=== PATIENT | male | born 1950 | race Hispanic/Latino ===

== ENCOUNTER 2016-08-09 10:48 | Emergency (ER) | payer BC, MEDICARE ==
[2016-08-09 11:02] VITALS: BMI 30.2
[2016-08-09 11:05] VITALS: BP 136/74; PULSE 90; RESP 17; TEMP 98.9; O2SAT 96
--- NOTE | 2016-08-09 11:24 | ED PDOC ---
Arrival/HPI - General Chief Complaint: Lower Extremity Problem/Injury Time Seen by Provider: 08/09/16 11:11 Historian: Patient, Spouse - History of Present Illness Narrative History of Present Illness (Text): 08/09/16 11:15 A 65 year old male, whose past medical history includes peripheral neuropathy and chronic lower leg swelling, presents to the emergency room with complaints of bottom of the left heel pain for 2 days. Patient notes the pain is worst with ambulation and better with rest. Patient denies any trauma, any other pain , or any other complaints. PMD: Dr. Landeros Time/Duration: < week (2 days) Symptom Onset: Sudden Symptom Course: Unchanged Quality: Other ("Pain") Severity Level: Moderate Activities at Onset: Light Context: Home Past Medical History - Provider Review Nursing Documentation Reviewed: Yes - Infectious Disease Hx of Infectious Diseases: None - Tetanus Immunization Tetanus Immunization: Unknown - Cardiac Hx Cardiac Disorders: Yes Hx WA: Yes (x 3) Hx Hypertension: Yes - Pulmonary Hx Respiratory Disorders: No - Neurological Hx Neurological Disorder: No - HEENT Hx HEENT Disorder: No - Renal Hx Renal Disorder: No - Endocrine/Metabolic Hx Endocrine Disorders: Yes Hx Diabetes Mellitus Type 2: Yes (IDDM) Hx Hypothyroidism: Yes - Hematological/Oncological Hx Blood Disorders: No - Integumentary Hx Dermatological Disorder: Yes Other/Comment: "Superbug" for past 5 years. pt breaks out on upper torso with sm pustules that are painful. contoled with antiobiotic therapy. - Musculoskeletal/Rheumatological Hx Musculoskeletal Disorders: No Hx Falls: No - Gastrointestinal Hx Gastrointestinal Disorders: No - Genitourinary/Gynecological Hx Genitourinary Disorders: No - Psychiatric Hx Psychophysiologic Disorder: No Hx Substance Use: Yes - Past Surgical History Past Surgical History: Non-Contributing - Surgical History Hx Coronary Artery Bypass Graft: Yes Hx Coronary Stent: Yes (x 10) Hx Open Heart Surgery: Yes (aortic valve replacement) Other/Comment: pi cyst; open heart 2015 - Anesthesia Hx Anesthesia: Yes Hx Anesthesia Reactions: No Hx Malignant Hyperthermia: No - Suicidal Assessment Feels Threatened In Home Enviroment: No Family/Social History - Physician Review Nursing Documentation Reviewed: Yes Family/Social History: No Known Family HX Smoking Status: Former Smoker Hx Alcohol Use: Yes (OCCASSIONAL) Hx Substance Use: Yes Allergies/Home Meds Allergies/Adverse Reactions: Allergies No Known Allergies Allergy (Verified 08/09/16 11:02) Home Medications: Home Meds Medication Instructions Recorded Confirmed Aspirin/Acetaminophen/Caffeine 1 tab PO PRN PRN 05/24/15 08/09/16 [Excedrin Extra Strength Caplet] Atorvastatin [Lipitor] 40 mg PO DAILY 05/24/15 08/09/16 Furosemide [Lasix] 40 mg PO BID 05/24/15 08/09/16 Insulin Detemir [Levemir] 20 units SC QPM 05/24/15 08/09/16 Insulin Detemir [Levemir] 55 units SC AMHS 05/24/15 08/09/16 Levothyroxine [Synthroid] 50 mcg PO DAILY 05/24/15 08/09/16 Melatonin [Melatonin] 10 mg PO HS 05/24/15 08/09/16 Metformin ER [Glucophage XR] 2,000 mg PO DAILY 05/24/15 08/09/16 Potassium Chloride [K-Dur 20 mEq 1 tab PO BID 05/24/15 08/09/16 ER Tab] Pregabalin [Lyrica] 100 mg PO BID 05/24/15 08/09/16 Sulfamethoxazole/Trimethoprim 1 tab PO BID 05/24/15 08/09/16 [Bactrim DS Tab] Topiramate [Topamax] 2 cap PO BID 05/24/15 08/09/16 Dulaglutide [Trulicity] 1.5 mg SC TUE 08/09/16 08/09/16 Folic Acid 1 mg PO DAILY 08/09/16 08/09/16 Insulin Lispro [humALOG] 30 unit SC TID 08/09/16 08/09/16 Lisinopril [Zestril] 2.5 mg PO DAILY 08/09/16 08/09/16 Methotrexate 25 mg PO TUE 08/09/16 08/09/16 Metoprolol Tartrate [Lopressor] 50 mg PO TID 08/09/16 08/09/16 Ubidecarenone [Co Q-10] 200 mg PO DAILY 08/09/16 08/09/16 Physical Exam - Physical Exam Narrative Physical Exam (Text): 08/09/16 11:24 - Review of Systems Constitutional: Normal. absent: Fatigue, Weight Change, Fevers Eyes: Normal ENT: Normal Respiratory: Normal absent: SOB, Cough, Sputum Cardiovascular: Normal absent: Chest pain, Palpitations, Syncope Gastrointestinal: Normal absent: Abdominal pain, Diarrhea, Nausea, Vomiting Genitourinary: Normal. absent: Dysuria, Frequency, Hematuria Musculoskeletal: Bottom of the left heel pain. absent: Arthralgias, Back Pain, Neck Pain Skin: Normal Neurological: Normal absent: Focal Weakness Endocrine: Normal Hemo/Lymphatic: Normal Psychiatric: Normal - Physical exam Patient appears age appropriate, speaking full sentences without difficulty - Systems Exam Head: Present: Atraumatic, Normocephalic Lower Extremity: Present: Pain along left heel with palpation. Positive pulses. Distal neurovascular fully intact. No: Swelling, Warmth, Edematous. Neurological: Present: GCS=15, Speech Normal, cranial nerves II through XII fully intact with no cerebellar abnormality, neuro-sensory fully intact. No focal neurological deficits. Skin: Present: Warm, Dry, Normal Color. No: Rashes Psychiatric: Present: Alert, Oriented x 3, Normal Insight, Normal Concentration Vital Signs Reviewed: Yes Vital Signs Temp Pulse Resp BP Pulse Ox 08/09/16 11:03 98.9 F 90 17 136/74 96 Temperature: Afebrile Blood Pressure: Normal Pulse: Regular Respiratory Rate: Normal Appearance: Positive for: Well-Appearing, Non-Toxic, Comfortable Pain Distress: None Mental Status: Positive for: Alert and Oriented X 3 Medical Decision Making ED Course and Treatment: 08/09/16 11:28 Impression: A 65 year old male with bottom of the left heel pain. Pain along heel with palpation noted on examination. Differential Diagnosis included but are not limited to: Plantar Fasciitis Plan: -- Left Foot X-ray -- Left Heel X-ray -- Toradol -- Reassess and disposition Prior Visits: Notes and results from previous visits were reviewed. Patient was last evaluated in the emergency room on 05/24/15 for the evaluation of foot pain. Progress Notes: Exam consistent with Plantar Fasciitis. Per patient's request, heel x-ray ordered. 08/09/16 12:20 no acute fractures or dislocations on xray. findings suspicious for calcific tendonitis. 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 Patient states that he fully agrees with and understands discharge instructions. States that he agrees with the plan and disposition. Verbalized and repeated discharge instructions and plan. I have given the patient opportunity to ask any additional questions. - RAD Interpretation Radiology Orders: 08/09/16 11:19 FOOT LEFT 3 VIEWS ROUTINE [RAD] Stat HEEL LEFT [RAD] Stat - Medication Orders Current Medication Orders: Discontinued Medications Ketorolac Tromethamine (Toradol) 15 mg IM STAT STA Stop: 08/09/16 11:19 Last Admin: 08/09/16 12:15 Dose: 15 mg - Scribe Statement The provider has reviewed the documentation as recorded by the Ayadibcayetano Estrada Provider Scribe Attestation: All medical record entries made by the Scribe were at my direction and personally dictated by me. I have reviewed the chart and agree that the record accurately reflects my personal performance of the history, physical exam, medical decision making, and the department course for this patient. I have also personally directed, reviewed, and agree with the discharge instructions and disposition. Disposition/Present on Arrival - Present on Arrival Any Indicators Present on Arrival: No History of DVT/PE: No History of Uncontrolled Diabetes: No Urinary Catheter: No History of Decub. Ulcer: No History Surgical Site Infection Following: None - Disposition Have Diagnosis and Disposition been Completed?: Yes Diagnosis: Heel pain Disposition: HOME/ ROUTINE Disposition Time: 12:25 Patient Plan: Discharge Patient Problems: Current Active Problems Problem Status Onset Heel pain Acute Condition: GOOD Discharge Instructions (ExitCare): Plantar Fasciitis (ED), Calcific Tendinitis (ED), Heel Spur (ED) Additional Instructions: PLEASE RETURN TO THE EMERGENCY DEPARTMENT FOR NEW OR WORSENING SYMPTOMS. RETURN RIGHT AWAY IF YOU CANNOT FOLLOW UP WITH YOUR PRIMARY CARE DOCTOR, CLINIC, OR SPECIALIST IN 1-2 DAYS. Prescriptions: Ibuprofen [Motrin] 600 mg PO Q8 PRN #12 tab PRN Reason: Pain, Moderate (4-7) Referrals: Ricardo Landeros MD [Primary Care Provider] - Follow up with primary Greta Ramirez DPM [Staff Provider] - Follow up with primary
--- NOTE | 2016-08-09 12:50 | RAD ---
PROCEDURE: Left Foot Radiographs. HISTORY: pain COMPARISON: None. FINDINGS: BONES: Normal. No fracture. JOINTS: Normal. SOFT TISSUES: Normal. OTHER FINDINGS: Small calcaneal spurs IMPRESSION: Small calcaneal spurs
--- NOTE | 2016-08-09 12:50 | RAD ---
PROCEDURE: Radiographs of the left calcaneus/hindfoot. HISTORY: pain COMPARISON: None available. TECHNIQUE: Frontal and lateral radiographs of the calcaneus. FINDINGS: No fracture or joint dislocation. There is a small focal lucency in the calcaneus posteriorly. This is of uncertain significance. This is not seen on the lateral view IMPRESSION: Small focal lucency in the posterior calcaneus, significance uncertain.
== END 2016-08-09 12:57 | disposition home or self-care (01) ==
LOC: ED 10:48
DX: M79.672 Pain in left foot (principal)
CPT/HCPCS: 73630; 73650; 96372; 99284; J1885